=== PATIENT | male | born 1990 | race Caucasian/White ===

== ENCOUNTER → 2017-01-04 | Outpatient (CLI) | payer OTHER ==
[~2017-01-04] VITALS: Ht 180.3 cm; Wt 99.5 kg
[~2017-01-04] MED LIST: ACID CONTROL20 MG PO; ANTIHEMOPHILIC FACTOR IV; COAGULATION FACTOR IX; DIPHENHYDRAMINE25 M3 PO; HYDROCODON-ACE1 EAC5 PO; NOVOSEVEN RT IV; OXYCODONE HCL 55 MG PO; OXYCODONE HCL5 M1 PO; OXYIR 5 MG CAPSU5 M1 PO; PRILOSEC 20 MG20 MG PO; ROXICODONE5 M2 PO; ROXICODONE5 MG PO; WELLBUTRIN XL150 M1 PO; [UNRECOGNIZED DRUG - OTHER] IV
--- NOTE | ~2017-01-04 | HPC ---
[facility] [address] [place] [address] PAIN MANAGEMENT CONSULTATION Name: ROBERT MOSCOSO Room #: REG JAMESON Sands.#: [id number] Admission: 01/04/17 Attend Phys: Cherelle Portillo MD Discharge: Date of : 88 Report #: [id number] THIS REPORT FOR: //name// CC: Cherelle Gandhi MD PRIMARY CARE PHYSICIAN: Jose Gandhi M.D. FOLLOWUP COMPLAINT: Things are going reasonably well. FOLLOWUP HISTORY: The patient is a 26-year-old gentleman who has been followed in the pain clinic. 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 He finds that his opioid medications continued to be helpful. He is taking them as prescribed. He is not having any problems with the medications. He has returned today and would like to continue their use. He rates his pain as a 2-3 today. Still has pain, which is most problematic in his left elbow, has some pain in the left ankle and notes some changes when the weather changes abruptly or with overuse of these areas. PHYSICAL EXAMINATION: The patient is alert, has not fallen since we saw him last. Blood pressure is 110/83, pulse 74, respiratory rate 16, room air saturation 99%. Height 5 feet 11 inches, weight 180 pounds, BMI is 30, has pain and discomfort involving his elbow, particularly on the left side secondary to bleeds resulting from hemophilia. IMPRESSION: Chronic pain involving joints, which results in pain secondary to constant bleeding from hemophilia. RECOMMENDATIONS: We will continue with his current medical regimen. The patient will call us if he has any problems with his medications. We would like to thank you for letting us participate in his care. We hope he continues to improve. <ELECTRONICALLY SIGNED> By: Cherelle Portillo MD 01/09/17 0901 [id number] Cherelle Portillo MD /nt
[2017-01-04 10:25] VITALS: BP 110/83
== END | disposition home or self-care (01) ==
LOC: PAIN 06:45
DX: D66 Hereditary factor VIII deficiency (principal); M25.572 Pain in left ankle and joints of left foot; M25.50 Pain in unspecified joint

== ENCOUNTER → 2017-04-12 | Outpatient (CLI) | payer OTHER, BC ==
[~2017-04-12] VITALS: Ht 180.3 cm; Wt 98.0 kg
[~2017-04-12] MED LIST changes: -WELLBUTRIN XL150 M1 PO; +WELLBUTRIN XL150 MG PO
--- NOTE | ~2017-04-12 | HPC ---
[facility] [address] [place] [place] [address] PAIN MANAGEMENT CONSULTATION Name: ROBERT MOSCOSO Room #: REG JAMESON Sands.#: [id number] Admission: 04/12/17 Attend Phys: Cherelle Portillo MD Discharge: Date of : 89 Report #: [id number] THIS REPORT FOR: //name// CC: Cherelle Gandhi MD DATE OF SERVICE: 04/12/2017 FOLLOWUP COMPLAINT: "Things are going reasonably well and haven't had any problems." FOLLOWUP HISTORY: The patient is a 26-year-old gentleman who has been followed in the Pain Clinic secondary to hemophilia. As you recall, he gets frequent bleeds into his joints. He finds the opioid medications are helpful. He is able to stay active with use of his medications. He states that he is not having any problem with the medications. He keeps them in a controlled environment. He would like to have his medications renewed at this juncture. PHYSICAL EXAMINATION: GENERAL: The patient is alert. No evidence of over sedation. He appears to be taking his medications as prescribed. VITAL SIGNS: Blood pressure 131/92, pulse 94, respiratory rate 18, room air saturation 97%. Height 5 feet 11 inches, weight 216 pounds, BMI is 30. He has not fallen since we saw him last. 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 RECOMMENDATIONS: We will continue with his current medical regimen of hydrocodone 10/325 one p.o. as needed, oxycodone 5 mg 1 p.o. q. 8 hours p.r.n. pain. He will follow up in the future as needed. By: [id number] Cherelle Portillo MD /BREANN
[2017-04-12 09:15] VITALS: BP 131/92
== END | disposition home or self-care (01) ==
LOC: PAIN 07:07
DX: D66 Hereditary factor VIII deficiency (principal); G89.29 Other chronic pain; Z79.899 Other long term (current) drug therapy

== ENCOUNTER → 2017-07-12 | Outpatient (CLI) | payer OTHER, BC ==
[~2017-07-12] VITALS: Ht 180.3 cm; Wt 101.5 kg
--- NOTE | ~2017-07-12 | HPC ---
[facility] [place] [address] PAIN MANAGEMENT CONSULTATION Name: ROBERT MOSCOSO Room #: REG JAMESON Sands.#: [id number] Admission: 07/12/17 Attend Phys: Cherelle Portillo MD Discharge: Date of : 88 Report #: [id number] THIS REPORT FOR: //name// CC: Cherelle Gandhi MD DATE OF SERVICE: 07/12/2017 FOLLOWUP COMPLAINT: "Things are going reasonably well. I am teaching." FOLLOWUP HISTORY: The patient is a 26-year-old gentleman who has been followed in the pain clinic because of chronic pain associated with hemophilia. As you recall, he gets frequent bleeds in his joints. He continues to find that opioid medications are helpful. He has taken the medication as prescribed. States that he keeps it in a controlled environment. He has not had any problems with his medications. 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 Overall, he feels that the medications are helpful and he would like to continue their use. ALLERGIES: ROCEPHIN, PENICILLIN. MEDICATIONS: Oxycodone 5 mg tablets q. 8 hours p.r.n. pain, hydrocodone 10/325 one q. 46 hours p.r.n. pain, Wellbutrin-XL 150 mg b.i.d., diphenhydramine p.r.n., omeprazole 20 mg. The patient also takes vitamin or takes hemophilia injections on a regular basis. PHYSICAL EXAMINATION: VITAL SIGNS: Blood pressure 105/78, pulse 84, respiratory rate 16, room air saturation 95%. Height 5 feet 11 inches, weight 223 pounds, BMI is 32. The patient has not fallen since we saw him last. HEENT: Unremarkable. NECK: Without adenopathy. CHEST: Clear to auscultation. ABDOMEN: Nontender, does note some decreased range of motion in his elbows, secondary to chronic bleeds in the past. IMPRESSION: 1. 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 2. Depression. RECOMMENDATIONS: We discussed treatment options with the patient. We will continue with his current medical regimen of OxyContin and hydrocodone. He will call us if he has any problems with his medications. Hopefully, things continue to go well. 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 [address] PAIN MANAGEMENT CONSULTATION Name: ROBERT MOSCOSO Room #: REG JAMESON Nate#: [id number] Admission: 07/12/17 Attend Phys: Cherelle Portillo MD Discharge: Date of : 89 Report #: [id number] like to thank you for letting us participate in his care. We hope he continues to improve. <ELECTRONICALLY SIGNED> By: Cherelle Portillo MD 07/24/17 0837 [id number] Cherelle Portillo MD /BREANN
[2017-07-12 14:28] VITALS: BP 105/78
== END ==
LOC: PAIN 07:24
DX: M25.08 Hemarthrosis, other specified site (principal); D66 Hereditary factor VIII deficiency; F32.9 Major depressive disorder, single episode, unspecified

== ENCOUNTER → 2017-10-18 | Outpatient (CLI) | payer OTHER, BC ==
[~2017-10-18] VITALS: Ht 180.3 cm; Wt 106.5 kg
--- NOTE | ~2017-10-18 | HPC ---
[facility] [address] [place] [address] PAIN MANAGEMENT CONSULTATION Name: ROBERT MOSCOSO Room #: REG Bo LuevanoIsraelTim.#: [id number] Admission: 10/18/17 Attend Phys: Cherelle Portillo MD Discharge: Date of : 89 Report #: [id number] THIS REPORT FOR: //name// CC: Cherelle Gandhi MD DATE OF SERVICE: 10/18/2017 FOLLOWUP COMPLAINT: Things are going reasonably well, I am in [facility], which is about 4 hours away. FOLLOWUP HISTORY: The patient is a 26-year-old gentleman who has been followed in the pain clinic because of chronic pain associated with his hemophilia. As you recall because of his hemophilia, he has episodic bleeds. They involve his elbows most of the time. Finding his opioid medications continue to be helpful. Continues to use hemolytic factor approximately 3500 units every other day for hemostasis. Overall, things are going reasonably well. He describes pain and discomfort as 6-7/10. Notes that there is some burning, sharp, aching and dull discomfort in the elbow areas. The weather has been changing. He has noted some increased pain and discomfort with overuse of his arms. Notes that it improves somewhat with use of his medication as well as using heat and rest. States that he continues to use his medications in a fashion as required. Keeps his medications in a guarded place. 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 ALLERGIES: ROCEPHIN, PENICILLIN. MEDICATIONS: Oxycodone 5 mg tablets q. 8 hours p.r.n. pain, hydrocodone 10/325 q. 4-6h p.r.n. pain, Wellbutrin-XL 450 mg b.i.d., diphenhydramine, omeprazole 20 mg, the patient also takes vitamins. Takes hemophilia injections every other day 3500 units. PAIN CLINIC ASSESSMENT: 1. 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 2. Height 5 feet 11 inches, weight 234 pounds, BMI is 23. 3. VITAL SIGNS: Blood pressure 135/86, pulse 76, respiratory rate 16, room air saturation 97%. 4. Pain intensity is a 6-7. 5. Fall risk. The patient has not fallen in the last 3 months. 6. Blood thinner. The patient is not on a blood thinner. He does have hemophilia. 7. History of hypertension. The patient is not treated for hypertension. 8. Opioid therapy. The patient is on a contract and signed a contract with the pain clinic to get [place] [address] PAIN MANAGEMENT CONSULTATION Name: BLANKAROBERT DIMITRIS Room #: REG JAMESON Sullivan#: [id number] Admission: 10/18/17 Attend Phys: Cherelle Portillo MD Discharge: Date of : 89 Report #: [id number] 9. Risks assessment tool. 10. Functional assessment tool. 11. Recreational drug use. The patient denies use of recreational drugs. 12. Tobacco. The patient denies use of tobacco smoking. 13. Alcohol. The patient denies use of alcoholic beverages. PHYSICAL EXAMINATION: GENERAL: The patient is a well-developed, well-nourished white male, appears his stated age. Orientation: The patient is alert and oriented x 3. Affect, the patient's affect appears normal. Speech is fluent. HEENT: Normocephalic, atraumatic. Extraocular eye muscles intact. Hearing is within normal limits. Mucous membranes moist. NECK: Without JVD or adenopathy. HEART: Regular rate. ABDOMEN: Nontender. MUSCULOSKELETAL: Generally normal without evidence of kyphosis, scoliosis or lordosis. Upper extremity strength, the patient has some limitations and extension of his elbows. This is secondary to the numerous episodes of bleeding into these joints over a period of time. 3D Specialist strength 5/5, lower extremity strength 5/5. IMPRESSION: 1. Chronic pain secondary to hemarthrosis involving his elbows and other joints secondary to hemophilia. 2. Depression. RECOMMENDATIONS: We discussed treatment options with the patient. Finding his medications continue to be helpful. They are able to remain him gainfully employed. He feels that the medications are working well without any problems with over sedation or problems with mentation. He is aware of the opioid message in the media. States that he is taking his medication as prescribed. He is aware of possible addiction as well as tolerance, which could develop. He will call us if he has any problems with his medications. A script for 3 months of medications have been dispensed. We would like to thank you for letting us participate in his care. We hope he continues to improve. <ELECTRONICALLY SIGNED> By: Cherelle Portillo MD 10/23/17 [id number] [id number] Cherelle Portillo MD /BREANN
[2017-10-18 10:28] VITALS: BP 135/86
== END ==
LOC: PAIN 06:51
DX: G89.29 Other chronic pain (principal); M25.022 Hemarthrosis, left elbow; M25.021 Hemarthrosis, right elbow; F32.9 Major depressive disorder, single episode, unspecified; Z88.0 Allergy status to penicillin; Z88.8 Allergy status to other drugs, medicaments and biological substances

== ENCOUNTER → 2018-01-10 | Outpatient (CLI) | payer OTHER, BC ==
[~2018-01-10] VITALS: Ht 180.3 cm; Wt 103.7 kg
--- NOTE | ~2018-01-10 | HPC ---
[facility] [place] [address] PAIN MANAGEMENT CONSULTATION Name: ROBERT MOSCOSO Room #: REG Bo Nate#: [id number] Admission: 01/10/18 Attend Phys: Cherelle Portillo MD Discharge: Date of : 88 Report #: [id number] THIS REPORT FOR: //name// CC: Cherelle Gandhi DATE OF SERVICE: 01/10/2018 FOLLOWUP COMPLAINT: "Here for renewal of medications. Have not had any problems. I still get a bleed in my joints about once or twice a month." FOLLOWUP HISTORY: The patient is a 27-year-old gentleman who has been followed in the pain clinic because of chronic pain associated with hemophilia. He continues to have episodes of bleeding. It involves his joints. They are the elbows as well as his ankles. He continues to use hemolytic factor approximately 35,000 units every other day. Overall, he feels that things are going reasonably well. He rates his pain as a 5/10. He has noted some worsening of pain when the weather changes. He also notes problems when he overuses his joints. At this point, he is not having a bleed. He does continue to have some pain and discomfort in his left ankle with some decreased mobility as compared to the right. He continues to keep his medications in a guarded area. He is aware of the possible complications of opioid use, which could include dependence/addiction as well as tolerance. 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 ALLERGIES: ROCEPHIN, PENICILLIN. CURRENT MEDICATIONS: Oxycodone tablets 5 mg q. 8h p.r.n., hydrocodone 10/325 q. 4-6h p.r.n., Wellbutrin-XL 150 mg b.i.d., diphenhydramine, omeprazole 20 mg, multivitamin, hemophilia injections every other day 35,000 units. PAIN CLINIC ASSESSMENT: 1. History of osteoarthritis involving his lower extremities, right and left elbows. 2. Height 5 feet 11 inches, weight 228 pounds, BMI is 31.9. 3. Vital signs: Blood pressure 126/81, pulse 83, respiratory rate 16, room air saturations 100. 4. Pain intensity 5/10. 5. Fall risk: The patient has not fallen in the last 3 months. 6. Blood thinner: The patient is not on a blood thinning medication. He has hemophilia. 7. History of hypertension: The patient is not being treated for hypertension. 8. Opioid therapy greater than 6 weeks: The patient is on opioid therapy provided by the pain clinic. He gets this medication from [facility]. 9. Functional assessment tool. 10. Recreational drug use: The patient denies use of recreational drugs. [address] [address] PAIN MANAGEMENT CONSULTATION Name: BLANKAROBERT DIMITRIS [facility] [id number] Admission: 01/10/18 Attend Phys: Cherelle Portillo MD Discharge: Date of : 89 Report #: [id number] 11. Tobacco: The patient has never smoked cigarettes. 12. Alcohol: The patient denies use of alcoholic beverages. PHYSICAL EXAMINATION: GENERAL: The patient is a well-developed, well-nourished white male. He appears his stated age. He is alert and oriented x 3. His affect is appropriate. Speech is fluent. HEENT: Normocephalic, atraumatic. Extraocular eye muscles intact. Hearing is within normal limits. Mucous membranes are moist. Sclerae are nonicteric. NECK: Without JVD or adenopathy. HEART: Regular rate. S1, S2. ABDOMEN: Nontender. MUSCULOSKELETAL: Without evidence of kyphosis, scoliosis or lordosis. Upper extremity muscle strength judged to be 5/5. He has some limited movement in his left and right elbow secondary to numerous episodes of bleeding. 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 Lower extremity muscle strength 5/5. He has some decreased range of motion in his left ankle as compared to the right secondary to history of bleeding into the joints. IMPRESSION: 1. Chronic pain secondary to hemarthrosis involving his elbows joints and ankles. 2. Depression. RECOMMENDATIONS: We discussed treatment options with the patient. We will continue with his current medication use. He states that he is taking his medication as prescribed. He is aware of the possible complication of opioids. ____ regarding addiction as well as tolerance were discussed. He feels his medications are working reasonably well. They enable him to engage in activities of daily living, which he would not be able to without them. Remains gainfully employed. A script for 3 months of his medications have been rewritten. He will follow up in the near future. We would like to thank you for letting us participate in his care. We hope he continues to improve. By: [id number] Cherelle Portillo MD /BREANN
[2018-01-10 09:53] VITALS: BP 126/81
== END ==
LOC: PAIN 07:11
DX: M25.522 Pain in left elbow (principal); M25.572 Pain in left ankle and joints of left foot; G89.29 Other chronic pain; F32.9 Major depressive disorder, single episode, unspecified

== ENCOUNTER → 2018-04-11 | Outpatient (CLI) | payer OTHER, BC ==
[~2018-04-11] VITALS: Ht 180.3 cm; Wt 104.1 kg
--- NOTE | ~2018-04-11 | HPC ---
[facility] [address] [place] [address] PAIN MANAGEMENT CONSULTATION Name: ROBERT MOSCOSO Room #: REG JAMESON LuevanoIsraelTim.#: [id number] Admission: 04/11/18 Attend Phys: Cherelle Portillo MD Discharge: Date of : 88 Report #: [id number] THIS REPORT FOR: //name// CC: Cherelle Gandhi FOLLOWUP COMPLAINT: The patient is here for medications. 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 FOLLOWUP HISTORY: The patient is a 27-year-old gentleman. 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 He finds that his medications continue to be helpful. He has episodes, where he continues to bleed into the joints. They continue to be problematic. Overall, things are going reasonably well. He does have bleed in his elbow and in his ankles. He continues to receive hemolytic factor approximately 35,000 units every day. Overall, he feels that things are going reasonably well. 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 He has somewhat tired as a result of the long drive. Overall, things are going well. He would like to continue with his medications. He is keeping the medications in a guarded area. He is not having any complications. He is aware that opioid medications can be problematic. They can cause dependence. The patient is aware of this and has carefully guarded the amount of medication that he has been taking. He would like to have a renewal of his medications at this juncture. CURRENT MEDICATIONS: Oxycodone 5 mg tablets q.8 hours, hydrocodone 10/325 q.4-6 hours p.r.n., Wellbutrin-XL 150 mg b.i.d., diphenhydramine, omeprazole 20 mg, multivitamin, and hemophilia injections every day 35,000 units. ALLERGIES: THE PATIENT IS ALLERGIC TO ROCEPHIN AND PENICILLIN. PAIN CLINIC ASSESSMENT AND PQRS: 1. History of osteoarthritis involving his lower extremities, right and left elbow. The patient is not being treated for rheumatoid arthritis. 2. Pain intensity is 6/10. 3. Fall risk. The patient has not fallen in the last 3 months. 4. Blood thinner. The patient is not on a blood thinning medication. He does have hemophilia. 5. History of hypertension. The patient is not being treated for hypertension. 6. Opioid medication. The patient has a contract with the pain clinic and receives his medication from one source. 7. Risk assessment tool, low for opioid use. 8. Functional assessment tool 38/70. 9. Recreational drug use. The patient denies use of recreational drugs. 10. Tobacco: The patient has never smoked. 11. Alcohol: The patient denies use of alcoholic beverages. PHYSICAL EXAMINATION: [facility] [address] [place] [address] PAIN MANAGEMENT CONSULTATION Name: ROBERT MOSCOSO DIMITRIS Room #: REG CLI Pete#: [id number] Admission: 04/11/18 Attend Phys: Cherelle Portillo MD Discharge: Date of : 88 Report #: [id number] GENERAL: The patient is a well-developed, well-nourished white male. He appears his stated age. He is alert and oriented x 3. His affect is appropriate. Speech is fluent. Height is 5 feet 11 inches, weight is 229 pounds, and BMI is 32. VITAL SIGNS: Blood pressure is 121/88, pulse is 65, respiratory rate is 14, and room air saturation is 97%. HEENT: Normocephalic, atraumatic. Extraocular eye muscles intact. Hearing is within normal limits. Mucous membranes are moist. Sclerae nonicteric. NECK: Without JVD or adenopathy. HEART: Regular rate. S1, S2. ABDOMEN: Nontender. Bowel sounds present. MUSCULOSKELETAL: Without evidence of kyphosis, scoliosis, or lordosis. Upper extremity muscle strength is judged to be 5/5. The patient continues to have some limited movement in his left and right elbow secondary to numerous episodes of bleeding. Roller Stitcher strength is 5/5. Lower extremity muscle strength is 5/5. The patient has some decreased range of motion in his left ankle compared to the right secondary to history of bleeding in the joints. IMPRESSION: 1. 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 2. Depression. RECOMMENDATIONS: We have discussed treatment options with the patient. He feels that his medications continue to be helpful. Things are going well. He is not having any complications. He is able to think clearly. He does not feel like he is having any problems with significant tolerance development. Overall, he feels medications are going reasonably well. He would like to continue with his medication. He feels that things are going well and will return in 3 months. A script for his medications of Roxicodone 5 mg and Jerome 10/325 have been written. We would like to thank you for letting us participate in his care. We hope he continues to improve. <ELECTRONICALLY SIGNED> By: Cherelle Portillo MD 04/28/18 [phone] Cherelle Portillo MD /PMT
[2018-04-11 09:04] VITALS: BP 121/88
== END ==
LOC: PAIN 08:07
DX: G89.29 Other chronic pain (principal); F32.9 Major depressive disorder, single episode, unspecified; M25.022 Hemarthrosis, left elbow; M25.021 Hemarthrosis, right elbow; M25.071 Hemarthrosis, right ankle; M25.072 Hemarthrosis, left ankle; Z79.899 Other long term (current) drug therapy

== ENCOUNTER → 2018-07-11 | Outpatient (CLI) | payer OTHER, BC ==
[~2018-07-11] VITALS: Ht 180.3 cm; Wt 104.0 kg
--- NOTE | ~2018-07-11 | HPC ---
[facility] [place] [place] [address] PAIN MANAGEMENT CONSULTATION Name: ROBERT MOSCOSO Room #: REG JAMESON Shavon.#: [id number] Admission: 07/11/18 Attend Phys: Cherelle Portillo MD Discharge: Date of : 88 Report #: [id number] THIS REPORT FOR: //name// CC: Cherelle Gandhi DATE OF SERVICE: 07/11/2018 CHIEF COMPLAINT: Here for medication renewal, things are going well. FOLLOWUP HISTORY: The patient is a 27-year-old gentleman who has been followed in the Pain Clinic. 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 He continues to have bleeding into his joints, particularly in the elbow areas. They continued to be painful. Finds that his medications are beneficial. He, as you are aware, cannot take any nonsteroidal anti-inflammatory medications. Finds that the opioid medications are beneficial. Continues to have approximately 35,000 units daily of hemolytic factor. Continues to teach. Keeps his medications in a guarded area. Overall, he feels that things are going reasonably well and would like to have his medications renewed. ALLERGIES: ROCEPHIN AND PENICILLIN. CURRENT MEDICATIONS: Oxycodone 5 mg q.8 hours, hydrocodone 10/325 q. 4-6 hours p.r.n., Wellbutrin-XL 150 mg b.i.d., diphenhydramine, omeprazole 20 mg, multivitamins, hemophilia injections every day 35,000 units. PAIN CLINIC ASSESSMENT/PQRS: 1. History of osteoarthritis involving the lower extremities right and left elbow pain. The patient is not being treated for rheumatoid arthritis. 2. Pain intensity, 12/22. 3. Height 5 feet 11 inches, weight 229 pounds, BMI is 32. 4. Vital signs: Blood pressure 115/75, pulse 77, respiratory rate 16, room air saturation 98%. 5. Fall risk. The patient has not fallen in the last 3 months. 6. Blood thinner. The patient is not on a blood thinning medication. He has hemophilia. 7. History of hypertension. The patient is not being treated for hypertension. 8. Opioid therapy greater than 6 weeks. The [facility]. 9. Risk assessment tool, low for opioid use. 10. Functional assessment tool, . 11. Recreational drug use. The patient denies use of recreational drugs. 12. Tobacco: The patient has never smoked. 13. Alcohol: The patient denies use of alcoholic beverages. PHYSICAL EXAMINATION: [facility] [address] [place] [address] PAIN MANAGEMENT CONSULTATION Name: ROBERT MOSCOSO Room #: REG [facility]#: [id number] Admission: 07/11/18 Attend Phys: Cherelle Portillo MD Discharge: Date of : 88 Report #: [id number] GENERAL: The patient is a well-developed, well-nourished white male. Appears his stated age. He is alert and oriented x 3. His affect is appropriate. Speech is fluent. HEENT: Normocephalic, atraumatic. Extraocular eye muscles intact. Sclerae nonicteric. Mucous membranes moist. NECK: Without adenopathy or JVD. HEART: Regular rate. S1, S2. ABDOMEN: Nontender. Bowel sounds present. MUSCULOSKELETAL: Without scoliosis, kyphosis or lordosis. The upper extremity has pain, particularly in his elbows with inability to totally extend his right elbow secondary to numerous episodes of bleed. Equipment Superintendent strength 5/5. Lower extremity muscle strength 5/5. The patient has pain and decreased motion in his left ankle compared to the right secondary to episodes of bleeding in the past. IMPRESSION: 1. 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 2. Depression. RECOMMENDATIONS: We have discussed the risks and benefits of opioid medication with the patient. He feels that they are working reasonably well. They allowed him to be gainfully employed. Enable him to engage in activities of daily living. He would not be able to without their use. Overall, he feels that things are going reasonably well. Aware that medication, such as opioids could be less effective as time goes on, secondary to development of tolerance and one can develop dependence. A script for his medications of oxycodone 5 mg 1 p.o. q. 8 hours 72 tablets and hydrocodone 10/325 one p.o. q.i.d. have been written. We would like to thank you for letting us participate in his care. We hope he continues to improve. By: [id number] Cherelle Portillo MD /reza
[2018-07-11 13:23] VITALS: BP 115/75
--- NOTE | 2018-07-11 13:34 | NUR ---
Pain Clinic Assessment: 1. History of Osteoarthritis: Left Lower Extremity Right Lower Extremity History of Rheumatoid Arthritis: Not Applicable 2. Height: 5 ft. 11 in. 180.3 cm. Weight: 229.2 lb. oz. 103.965 kg. Patient's BMI: 32.0 3. Vital Signs: BP: 115/75 Pulse: 77 Resp: 16 Temp: 02 Sat: 98 ECG Mon: 4. Pain Intensity: 6 5. Fall Risk: Dizziness: N Needs help standing or walking: N Fallen in the last 3 months: N Fall risk comments: 6. Patient on Blood Thinner: None 7. History of Hypertension: N 8. Opioid Therapy greater than 6 weeks: Y Opiate Contract Signed: 05/10/16 9. Risk Assessment Tool Provided: Opioid Risk Tool 10. Functional Assessment Tool: 38 11. Recreational Drug Use: Never Drug Type: Tobacco Use: Never Smoker Tobacco Type: Amount or Packs/day: How Many Years: Alcohol Use: No Frequency: Quant:
== END ==
LOC: PAIN 07:48
DX: G89.29 Other chronic pain (principal); F32.9 Major depressive disorder, single episode, unspecified; M25.022 Hemarthrosis, left elbow; M25.021 Hemarthrosis, right elbow; M25.072 Hemarthrosis, left ankle; M25.071 Hemarthrosis, right ankle; Z79.899 Other long term (current) drug therapy

== ENCOUNTER → 2018-10-10 | Outpatient (CLI) | payer BC ==
[~2018-10-10] VITALS: Ht 180.3 cm; Wt 103.0 kg
[~2018-10-10] MED LIST changes: +HEMLIBRA30 MG/1 ML SUBQ
[2018-10-10 09:06] VITALS: BP 128/85
--- NOTE | 2018-10-10 09:10 | NUR ---
Pain Clinic Assessment: 1. History of Osteoarthritis: B/L ELBOWS B/L ANKLES History of Rheumatoid Arthritis: Not Applicable 2. Height: 5 ft. 11 in. 180.3 cm. Weight: 227.0 lb. oz. 102.967 kg. Patient's BMI: 31.7 3. Vital Signs: BP: 128/85 Pulse: 66 Resp: 16 Temp: 02 Sat: 95 ECG Mon: 4. Pain Intensity: 4 5. Fall Risk: Dizziness: N Needs help standing or walking: N Fallen in the last 3 months: N Fall risk comments: 6. Patient on Blood Thinner: None 7. History of Hypertension: N 8. Opioid Therapy greater than 6 weeks: Y Opiate Contract Signed: 05/10/16 9. Risk Assessment Tool Provided: Opioid Risk Tool 10. Functional Assessment Tool: 38 11. Recreational Drug Use: Never Drug Type: Tobacco Use: Never Smoker Tobacco Type: Amount or Packs/day: How Many Years: Alcohol Use: No Frequency: Quant:
--- NOTE | 2018-10-14 12:42 | HPC ---
[facility] [place] [address] [place] [address] PAIN MANAGEMENT CONSULTATION Name: ROBERT MOSCOSO Room #: REG JAMESON Shavon.#: [id number] Admission: 10/10/18 ������������������ Attend Phys: Cherelle Portillo MD Discharge: ������������������ Date of : 88 Report #: [id number] THIS REPORT FOR: //name// CC: Cherelle Gandhi DATE OF SERVICE: 10/10/2018 CHIEF COMPLAINT: "Here for medication renewal, things are going okay." HISTORY: The patient is a 27-year-old gentleman who has been followed in the Pain Clinic. 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 He finds that his pain originates from chronic bleeding into his joints. It involves his elbows as well as his left ankle. He feels that his medications are helpful. He is a teacher. He states that he is considering moving to [place]. He would like to move to the [facility]. He has friends as well as family in this area. He feels that the warmer climate may be more efficacious to his chronic pain as well. He continues to have hemolytic some problems with bleeding into his knees. He takes 35,000 units daily of hemolytic factor. He feels that the medications continued to be doing the best as they can. ALLERGIES: ROCEPHIN AND PENICILLIN. CURRENT MEDICATIONS: Oxycodone 5 mg q. Hydrocodone 10 mg q.4-6 hours p.r.n., Wellbutrin-XL 150 mg, diphenhydramine, omeprazole 20 mg, multivitamins, hemophilia injections every day 35,000 units. PAIN CLINIC ASSESSMENT/PQRS: 1. The patient has a history of osteoarthritic changes involving his elbows, right and left, as well as the complaint of left ankle problems. The patient is not being treated for rheumatoid arthritis. 2. Height 5 feet 11 inches, weight 222 pounds, BMI is 31.7. 3. Vital signs: Blood pressure 128/85, pulse 66, respiratory rate 16, room air saturation 95%. 4. Pain intensity 10/22. 5. Fall risk. The patient has not fallen in the last 3 months. 6. Blood thinner. The patient is not on a blood thinning medication. 7. Hypertension. The patient has not been treated for hypertension. 8. Opioids greater than 6 weeks. The [facility]. 9. Risk assessment tool, low for opioid use. 10. Functional assessment tool, . 11. Recreational drug use. The patient denies use of recreational drugs. 12. Tobacco: The patient has never smoked. 13. Alcohol: The patient denies frequent use of alcoholic beverages. [address] [address] PAIN MANAGEMENT CONSULTATION Name: ROBERT MOSCOSO DIMITRIS Room #: REG CL Shavon.#: [id number] Admission: 10/10/18 ������������������ Attend Phys: Cherelle Portillo MD Discharge: ������������������ Date of : 88 Report #: [id number] PHYSICAL EXAMINATION: GENERAL: The patient is a well-developed, well-nourished white male. Appears his stated age. He is alert and oriented x 3. His affect is appropriate. Speech is fluent. HEENT: Normocephalic, atraumatic. Extraocular eye muscles are intact. Sclerae nonicteric. Mucous membranes are moist. NECK: Without adenopathy or JVD. ABDOMEN: Nontender. Bowel sounds present. MUSCULOSKELETAL: Without significant scoliosis, kyphosis or lordosis. He does have pain and discomfort in his left as well as the right elbows. His arms were not fully extended secondary to the lobsterman bleeding episodes he has had in the past. Muscle strength global head advertiser solutions is 5/5. Lower extremity muscle strength 5/5 in the major muscle groups. He has some decreased range of motion in his left ankle secondary to episodes of bleeding in the past. IMPRESSION: 1. Chronic pain secondary to hemarthrosis involving the elbows and ankle, particularly left side. 2. Depression. RECOMMENDATION: We discussed treatment options with the patient. We will continue with his current medications. Risks and benefits of chronic opioid medication were discussed. Possibility of development of tolerance as well as less effectiveness because of chronic use of these medications was again reviewed. The patient is also aware that opioid dependence can occur as a result of chronic use of opioid medications. He feels that his medications provide him ability to engage in activities and would not be able to without them. Overall, things are going reasonably well and he would like to continue his medications. A script for his medications of oxycodone 5 mg 1 p.o. q.8 hours p.r.n., total of 75 and hydrocodone 10 mg 1 p.o. q.4-6 hours, total of 160 have been released. We would like to thank you for letting us participate in his care. We hope he continues to improve. ��������������������������������������������� <ELECTRONICALLY SIGNED> ���������������������������������������� By: Cherelle Portillo MD ��������������������������������������������� 10/14/18 1242 [id number] [id number] Cherelle Portillo MD /reza
== END | disposition home or self-care (01) ==
LOC: PAIN 06:45
DX: Z76.0 Encounter for issue of repeat prescription (principal); G89.29 Other chronic pain; D66 Hereditary factor VIII deficiency; Z88.0 Allergy status to penicillin; Z88.8 Allergy status to other drugs, medicaments and biological substances; Z79.891 Long term (current) use of opiate analgesic

== ENCOUNTER → 2019-01-28 | Outpatient (CLI) | payer BC, OTHER ==
[~2019-01-28] VITALS: Ht 180.3 cm; Wt 105.0 kg
[2019-01-28 13:46] VITALS: BP 118/83
--- NOTE | 2019-01-28 13:53 | NUR ---
Pain Clinic Assessment: 1. History of Osteoarthritis: B/L ELBOWS B/L ANKLES History of Rheumatoid Arthritis: Not Applicable 2. Height: 5 ft. 11 in. 180.3 cm. Weight: 231.4 lb. oz. 104.963 kg. Patient's BMI: 32.3 3. Vital Signs: BP: 118/83 Pulse: 74 Resp: 16 Temp: 02 Sat: 97 ECG Mon: 4. Pain Intensity: 3 5. Fall Risk: Dizziness: N Needs help standing or walking: N Fallen in the last 3 months: N Fall risk comments: 6. Patient on Blood Thinner: None 7. History of Hypertension: N 8. Opioid Therapy greater than 6 weeks: Y Opiate Contract Signed: 05/10/16 9. Risk Assessment Tool Provided: Opioid Risk Tool 10. Functional Assessment Tool: 38 11. Recreational Drug Use: Never Drug Type: Tobacco Use: Never Smoker Tobacco Type: Amount or Packs/day: How Many Years: Alcohol Use: No Frequency: Quant:
--- NOTE | 2019-01-29 08:01 | HPC ---
[facility] [email or web address] [address] PAIN MANAGEMENT CONSULTATION Name: ROBERT MOSCOSO Room #: REG JAMESON Sullivan#: [id number] Admission: 01/28/19 ������������������ Attend Phys: Lennie Sanders Discharge: ������������������ Date of : 88 Report #: [id number] THIS REPORT FOR: //name// CC: Lennie Sanders Jose Felizs DATE OF SERVICE: 01/28/2019 CHIEF COMPLAINT: Chronic pain in his joints as a result of hemophilia. HISTORY OF PRESENT ILLNESS: This is a pleasant 28-year-old gentleman who returns to the pain clinic today for refill of his medications that he uses to help treat his joint pain that is caused by his hemophilia. He tells me that he has recently started some new medications, only needing to take his injections once a week that feels that has been very beneficial and has decreased his pain slightly for his hemophilia. He also tells me that he may be possibly moving to [place]. He has had some job interviews down there. 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 Otherwise, he would like a refill of his medications today, stating his pain is a 3/10, worse with weather changes or overuse of his joints. ALLERGIES: PENICILLIN AND ROCEPHIN. CURRENT LIST OF MEDICATIONS: Oxycodone 5 mg b.i.d., hydrocodone 10/325 five to six times a day p.r.n., Hemlibra 30 mg weekly, antihemophilic factor as needed, bupropion twice a day, Prilosec 20 mg daily. PQRS: 1. He has a history of osteoarthritis in his elbows and ankles. He denies any rheumatoid arthritis. 2. Height is 5 feet 11 inches, weight is 231, BMI is 32. 3. Vital signs: Blood pressure 118/83, pulse 74, respirations 16, oxygen sat is 97. 4. Pain score is 3/10. 5. Denies dizziness. He does not need help with walking or standing. He has not fallen in the last 3 months. 6. The patient is not on any blood thinners. He does not take medicine for hypertension. 7. Opioid therapy is greater than 6 weeks; therefore, an opioid signed contract is on the chart. Risk assessment tool is low. Functional assessment is 38/70. 8. Recreational drug use, he denies. He is not a smoker and does not drink alcohol. We did check the prescription monitoring system. The patient is filling appropriately for his medications and he is due for those to be filled today. [address] [address] PAIN MANAGEMENT CONSULTATION Name: BLANKAROBERT DIMITRIS Room #: REG JAMESON Sullivan#: [id number] Admission: 01/28/19 ������������������ Attend Phys: Lennie Sanders Discharge: ������������������ Date of : 88 Report #: [id number] He has gone slightly longer than a month since his last fill. There is a recent drug screen on the chart as well from earlier this year. PHYSICAL EXAMINATION: GENERAL: This is a well-developed, well-nourished, well-hydrated 28-year-old male who appears his stated age, placing his current pain score at 3/10 today. He is alert and orientated and his speech is fluent. HEENT: Normocephalic, atraumatic. Extraocular eye muscles are intact. Mucous membranes are moist. NECK: Without adenopathy or JVD. MUSCULOSKELETAL: Without significant scoliosis, kyphosis or lordosis. Complains of pain and discomfort in his bilateral elbows and bilateral ankles. He has decreased range of motion in his ankles secondary to episodes of bleeding in the past. Lower extremity strength judged to be 5/5 in all major muscle groups in his upper and lower extremities. IMPRESSION: 1. Chronic pain secondary to hemarthrosis involving his elbows and ankles. 2. Depression. 3. Complex medical management in terms of written opioid agreement. We reviewed the fact that opiate medications are being used to provide analgesia adequate to support activities of daily living, not attempting to achieve a specific pain score on the 0-10 Visual Analog Scale. The current opiate medications are providing sufficient analgesia to allow the patient to participate in activities of daily living. The patient is not exhibiting any aberrant behavior suggestive of drug diversion. The patient is not having any adverse reactions to medications. The patient is not suffering from daytime somnolence or mental acuity changes. The patient is managing opiate-induced constipation with appropriate vqgd-rga-bygkely agents and dietary considerations. The patient was counseled on concern for caution with operating a motor vehicle while using opiate medications. A physical exam was performed and the patient's functional status was evaluated. All patients with back pain were advised against the bed rest greater than 4 days and were advised to return to normal activities. Pain score assessment was noted and the treatment plan was reviewed with the patient. All current medications, both prescribed and OTC were reviewed and reconciled on the electronic medical record. Tobacco screening was accomplished and smoking cessation was advised when indicated. BMI was noted and diet/exercise modification was recommended for all patients following outside normal parameters. I reviewed with the patient today their responsibilities to safeguard prescription medications, reviewed their responsibility to utilize medications only as prescribed by the physician. They are to seek and receive pain [address] [address] PAIN MANAGEMENT CONSULTATION Name: ROBERT MOSCOSO Room #: REG [facility].#: [id number] Admission: 01/28/19 ������������������ Attend Phys: Lennie Sanders Discharge: ������������������ Date of : 88 Report #: [id number] medications only from 1 physician group ( [facility]). They are to use 1 pharmacy and keep the clinic informed if they change pharmacies. Their responsibilities include making followup visits in a timely fashion and to avoid abrupt discontinuation of medication usage. Their responsibilities further include bringing their medications (bottles from the pharmacy with residual pills) to the visit for possible confirmation of pill counts and the patient understands it is their responsibility to submit to random drug screens to ensure both that the medications prescribed are present, and that no other controlled substances are present. All prescriptions provided today were generated electronically. PLAN: 1. We discussed treatment options with the patient today. The patient tells me he has been able to decrease his pain medication slightly since he has had a change in his hemophilia medications. I encouraged him to try to continue at this lower dose if he is able and we discussed the CDC guidelines. Currently, he is at 69 morphine milligram equivalents, but if he is able to take less, that would lower the dose closer to their guidelines of 50. The patient is agreeable with trying to do this. Scripts given today for hydrocodone 10/325 #160 and oxycodone 5 mg #75 to be released today for an 8-week. 2. The patient did go longer than 3 months with his current medications and if he continues to do, then we will lower the amount of medications. This may be beneficial also since he is trying to move to [place] and finding a new pain clinic. I did give him the names of Dr. Andrade, Dr. Smallwood and Dr. Lanier who are pain doctors that practice in the [facility] area. 3. The patient is seen with Dr. Milad Portillo who collaborated care today. The patient will follow up in 3 months. ��������������������������������������������� <ELECTRONICALLY SIGNED> ���������������������������������������� By: Lennie Sanders ��������������������������������������������� 01/29/19 0801 1448 [id number] Lennie Sanders /nt
== END ==
LOC: PAIN 13:11
DX: M25.022 Hemarthrosis, left elbow (principal); M25.021 Hemarthrosis, right elbow; M25.071 Hemarthrosis, right ankle; M25.072 Hemarthrosis, left ankle; F32.9 Major depressive disorder, single episode, unspecified; Z79.891 Long term (current) use of opiate analgesic

== ENCOUNTER → 2019-07-01 | Outpatient (CLI) | payer BC, OTHER ==
[~2019-07-01] VITALS: Ht 180.3 cm; Wt 107.0 kg
[~2019-07-01] MED LIST changes: +HEMLIBRA SUBQ
[2019-07-01 12:55] VITALS: BP 130/84
--- NOTE | 2019-07-01 12:59 | NUR ---
Pain Clinic Assessment: 1. History of Osteoarthritis: B/L ELBOWS B/L ANKLES History of Rheumatoid Arthritis: Not Applicable 2. Height: 5 ft. 11 in. 180.3 cm. Weight: 235.8 lb. oz. 106.958 kg. Patient's BMI: 32.9 3. Vital Signs: BP: 130/84 Pulse: 101 Resp: 14 Temp: 02 Sat: 97 ECG Mon: 4. Pain Intensity: 4 W/MED 6 THIS AM 5. Fall Risk: Dizziness: N Needs help standing or walking: N Fallen in the last 3 months: N Fall risk comments: 6. Patient on Blood Thinner: None 7. History of Hypertension: N 8. Opioid Therapy greater than 6 weeks: Y Opiate Contract Signed: 05/10/16 9. Risk Assessment Tool Provided: Opioid Risk Tool 10. Functional Assessment Tool: 38 11. Recreational Drug Use: Never Drug Type: Tobacco Use: Never Smoker Tobacco Type: Amount or Packs/day: How Many Years: Alcohol Use: No Frequency: Quant:
--- NOTE | 2019-07-02 08:06 | HPC ---
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 HISTORY OF PRESENT ILLNESS: This is a [id number]-skk gentleman who returns to the pain clinic today for refill of his medications. He uses his hydrocodone and oxycodone to treat his joint pain as a result of his hemophilia. The worst pain is in his bilateral elbows as well as his left ankle. It is a dull aching pain, rating a 4/10 with his medications. He feels that the weather aggravates it as well as overuse or upon awakening in the morning. The medications are very beneficial as well as rest. He has been able to go longer than his 3 months of medication. His last visit was in January, some days he feels that he is able to take less medications, therefore, it has lasted longer. Today, he would like refills. He does live in [place], [place] now. We encouraged him to try and find a doctor closer to home to fill his medications. ALLERGIES: PENICILLIN AND ROCEPHIN. CURRENT LIST OF MEDICATIONS: Hemlibra 150 mg weekly, oxycodone 5 mg p.r.n., hydrocodone 10/325 p.r.n., Koate-DVI weekly, Wellbutrin 150 mg b.i.d., omeprazole. PQRS: 1. 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 Denies any rheumatoid arthritis. 2. Height is 5 feet 11 inches, weight is 235, BMI is 32. 3. Vital signs 130/84, pulse is 101, respirations 14, and oxygen sat is 97. 4. Pain score is 4/10. 5. Denies dizziness, does not need help walking or standing, has not fallen in the last 3 months. 6. The patient is not on any blood thinners or medicines for hypertension. 7. Opioid therapy is greater than 6 weeks; therefore, an opioid signed contract is on the chart. Risk assessment tool is low. Functional assessment is 38/70. 8. Recreational drug use, he denies. He is not a smoker and does not drink alcohol. According to the prescription monitoring system, he only had filled oxycodone. We did call his [place] pharmacy and spoke with them. According to their [facility] [address] [place] [address] PAIN MANAGEMENT CONSULTATION Name: ROBERT MOSCOSO DIMITRIS Room #: REG CLI Nate#: [id number] Admission: 07/01/19 Attend Phys: Lennie Sanders Discharge: Date of : 88 Report #: [id number] records, they had filled his hydrocodone exactly the same time of his oxycodone. His last fill was in 05/01/2019 for both of his medications by Dr. Portillo. There are no aberrant fills from any other physicians and there is a recent drug screen on the chart that is appropriate as well. PHYSICAL EXAMINATION: GENERAL: This is a well-developed, well-nourished, slightly obese 28-year-old gentleman, rating his current pain score at 4/10 today. HEENT: Normocephalic, atraumatic. Extraocular eye muscles are intact. Mucous membranes are moist. NECK: Without adenopathy or JVD. MUSCULOSKELETAL: He has discomfort and tenderness in his bilateral elbows and left ankle. He does have decreased range of motion in his ankle. Lower extremity strength judged to be 5/5 in all major muscle groups with good sensation. He is without significant scoliosis, kyphosis or lordosis. IMPRESSION: 1. 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 2. Depression. 3. Complex medical management under terms of written opioid agreement. We reviewed the fact that opiate medications are being used to provide analgesia adequate to support activities of daily living, not attempting to achieve a specific pain score on the 0-10 Visual Analog Scale. The current opiate medications are providing sufficient analgesia to allow the patient to participate in activities of daily living. The patient is not exhibiting any aberrant behavior suggestive of drug diversion. The patient is not having any adverse reactions to medications. The patient is not suffering from daytime somnolence or mental acuity changes. The patient is managing opiate-induced constipation with appropriate xxbq-euj-yaghgbz agents and dietary considerations. The patient was counseled on concern for caution with operating a motor vehicle while using opiate medications. A physical exam was performed and the patient's functional status was evaluated. All patients with back pain were advised against the bed rest greater than 4 days and were advised to return to normal activities. Pain score assessment was noted and the treatment plan was reviewed with the patient. All current medications, both prescribed and OTC were reviewed and reconciled on the electronic medical record. Tobacco screening was accomplished and smoking cessation was advised when indicated. BMI was noted and diet/exercise modification was recommended for all patients following outside normal parameters. I reviewed with the patient today their responsibilities to safeguard prescription medications, reviewed their responsibility to utilize medications [facility] [address] [place] [address] PAIN MANAGEMENT CONSULTATION Name: ROBERT MOSCOSO Room #: REG LUISANABo M.Tim.#: [id number] Admission: 07/01/19 Attend Phys: Lennie Sanders Discharge: Date of : 88 Report #: [id number] only as prescribed by the physician. They are to seek and receive pain medications only from 1 physician group ( [facility]). They are to use 1 pharmacy and keep the clinic informed if they change pharmacies. Their responsibilities include making followup visits in a timely fashion and to avoid abrupt discontinuation of medication usage. Their responsibilities further include bringing their medications (bottles from the pharmacy with residual pills) to the visit for possible confirmation of pill counts and the patient understands it is their responsibility to submit to random drug screens to ensure both that the medications prescribed are present, and that no other controlled substances are present. All prescriptions provided today were generated electronically. PLAN: 1. We discussed treatment options with the patient today. The patient finds his medications beneficial. He has been able to make three medications last longer. Our last visit with him was in January, 3 months of medications have lasted him 5 months. The patient feels that these medications allow him to keep as active as possible. 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 2. Scripts will be given to him today for his oxycodone 5 mg, #75 for today 4 an 8 weeks as well as hydrocodone 10/325 #160 for today 4 an 8-week by Dr. Errol Portillo. This does place the patient around 75 morphine mEq according to the CDC guidelines. 3. The patient will call for an appointment as needed. The patient is seen today by Dr. Portillo as well who collaborated care. <ELECTRONICALLY SIGNED> By: Lennie Sanders 07/02/19 0806 1525 Lennie Sanders /nt
== END ==
LOC: PAIN 06:56
DX: G89.29 Other chronic pain (principal); F32.9 Major depressive disorder, single episode, unspecified; Z79.891 Long term (current) use of opiate analgesic

== ENCOUNTER → 2019-10-02 | Outpatient (CLI) | payer BC, OTHER ==
[~2019-10-02] VITALS: Ht 180.3 cm; Wt 107.3 kg
[~2019-10-02] MED LIST changes: +MOVANTIK25 MG PO; +SYMPROIC0.2 MG PO
[2019-10-02 10:27] VITALS: BP 131/91
--- NOTE | 2019-10-02 10:34 | NUR ---
Pain Clinic Assessment: 1. History of Osteoarthritis: B/L ELBOWS B/L ANKLES History of Rheumatoid Arthritis: Not Applicable 2. Height: 5 ft. 11 in. 180.3 cm. Weight: 236.6 lb. oz. 107.321 kg. Patient's BMI: 33.0 3. Vital Signs: BP: 131/91 Pulse: 85 Resp: 16 Temp: 02 Sat: 97 ECG Mon: 4. Pain Intensity: 5 5. Fall Risk: Dizziness: N Needs help standing or walking: N Fallen in the last 3 months: N Fall risk comments: 6. Patient on Blood Thinner: None 7. History of Hypertension: N 8. Opioid Therapy greater than 6 weeks: Y Opiate Contract Signed: 05/10/16 9. Risk Assessment Tool Provided: Opioid Risk Tool 10. Functional Assessment Tool: 38 11. Recreational Drug Use: Never Drug Type: Tobacco Use: Never Smoker Tobacco Type: Amount or Packs/day: How Many Years: Alcohol Use: No Frequency: Quant:
--- NOTE | 2019-10-09 08:21 | HPC ---
[facility] [place] [address] PAIN MANAGEMENT CONSULTATION Name: ROBERT MOSCOSO Room #: REG JAMESON Sands.#: [id number] Admission: 10/02/19 Attend Phys: Cherelle Portillo MD Discharge: Date of : 88 Report #: [id number] THIS REPORT FOR: cc: Jose Gandhi MD,Jose Portillo,Cherelle Stinson MD ~ CC: Cherelle Gandhi DATE OF SERVICE: 10/07/2019 CHIEF COMPLAINT: Here for medications. HISTORY: The patient is a 28-year-old gentleman who has been followed in the pain clinic because of chronic pain. As you may recall, he suffers from hemophilia. He continues to have bleeding into his joints. He finds that the pain has helped with medications. The patient has for quite a number of years have been on opioid medications to help curtail his pain. He has returned today for renewal of medication. He is having some problems with constipation. He has returned today for renewal of the medications. ALLERGIES: PENICILLIN AND ROCEPHIN. CURRENT MEDICATIONS: Hemlibra 150 mg weekly, oxycodone 5 mg, hydrocodone 10/325, Koate-DVI weekly, Wellbutrin 150 mg b.i.d., omeprazole. PAIN CLINIC ASSESSMENT AND PQRS: 1. The patient has a history of osteoarthritis involving his elbows, ankles. The patient is not being treated for rheumatoid arthritis. 2. Height 5 feet 0 inch, weight 236 pounds, BMI is 33. 3. Vital signs: Blood pressure 131/91, pulse 85, respiratory rate 16, room air saturation 97%. 4. Pain intensity 10. 5. Fall risk. The patient has not fallen in the last 3 months. 6. Blood thinner. The patient is not on a blood thinning medication. 7. Hypertension. The patient is not being treated for hypertension. 8. Opioids greater than 6 weeks. The patient received medication from one source, pain clinic. 9. Risk assessment tool has been reviewed. 10. Functional assessment tool . 11. Recreational drugs, denies. 12. Tobacco: The patient has never smoked. 13. Alcohol. The patient denies frequent use of alcoholic beverages. PHYSICAL EXAMINATION: GENERAL: The patient is a well-developed, well-nourished white male. Appears [address] [address] PAIN MANAGEMENT CONSULTATION Name: ROBERT MOSCOSO Room #: REG [facility].#: [id number] Admission: 10/02/19 Attend Phys: Cherelle Portillo MD Discharge: Date of : 88 Report #: [id number] his stated age. He is alert and oriented x 3. His affect is appropriate. Speech is fluent. HEENT: Normocephalic, atraumatic. Extraocular eye muscles intact. Sclerae nonicteric. Mucous membranes moist. NECK: Without adenopathy. HEART: Regular. LUNGS: Generally clear. ABDOMEN: Nontender. MUSCULOSKELETAL: The patient complains of pain and discomfort in the left ankle. Notes some pain in his elbows bilaterally. The patient without significant scoliosis, kyphosis or lordosis. IMPRESSION: 1. 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 2. Depression. 3. Complex medical management used to help control the patient's pain. RECOMMENDATIONS: We discussed treatment options with the patient. At this juncture, we will continue with his medications. He feels that the medications are helpful. He has had no complications from their use. He has pain, which he rates at about a 5/10 in intensity. Does note some waxing and waning of the pain due to the weather. He does have suffered from opioid-induced constipation. We would like to have the patient try Movantik to help with this constipation. The patient has also been given a script for oxycodone 5 mg 1 p.o. 8 hours p.r.n., total of 75 tablets per month. He will also take hydrocodone 10/325 one p.o. q. 4 hours p.r.n., total of 160 tablets for a month. He has been given a script for the next 3 months. The patient will be provided a script for Movantik 25 mg daily to help with the opioid-induced constipation. We would like to thank you for letting us participate in his care. We hope he continues to improve. <ELECTRONICALLY SIGNED> By: Cherelle Portillo MD 10/09/19 0821 1641 [id number] Cherelle Portillo MD /BREANN
== END ==
LOC: PAIN 08:29
DX: G89.29 Other chronic pain (principal); F32.9 Major depressive disorder, single episode, unspecified; Z79.891 Long term (current) use of opiate analgesic

== ENCOUNTER → 2020-01-06 | Outpatient (CLI) | payer BC, OTHER ==
[~2020-01-06] VITALS: Ht 180.3 cm; Wt 107.7 kg
[2020-01-06 10:24] VITALS: BP 125/81
--- NOTE | 2020-01-06 10:34 | NUR ---
Pain Clinic Assessment: 1. History of Osteoarthritis: B/L ELBOWS B/L ANKLES History of Rheumatoid Arthritis: Not Applicable 2. Height: 5 ft. 11 in. 180.3 cm. Weight: 237.4 lb. oz. 107.684 kg. Patient's BMI: 33.1 3. Vital Signs: BP: 125/81 Pulse: 79 Resp: 16 Temp: 02 Sat: 98 ECG Mon: 4. Pain Intensity: 5 5. Fall Risk: Dizziness: N Needs help standing or walking: N Fallen in the last 3 months: N Fall risk comments: 6. Patient on Blood Thinner: None 7. History of Hypertension: N 8. Opioid Therapy greater than 6 weeks: Y Opiate Contract Signed: 05/10/16 9. Risk Assessment Tool Provided: LOW RISK 07/17 10. Functional Assessment Tool: 11. Recreational Drug Use: Never Drug Type: Tobacco Use: Never Smoker Tobacco Type: Amount or Packs/day: How Many Years: Alcohol Use: No Frequency: Quant:
--- NOTE | 2020-01-07 11:01 | HPC ---
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 HISTORY OF PRESENT ILLNESS: This is a very pleasant 29-year-old gentleman who returns to the pain clinic today for refill of his opioid medications. His last visit with us was 3 months ago. He states he has been doing quite well with his current regimen, rating his pain score OF 5/10. Most of his pain is located in his joints due to his hemophilia. His most painful joints are his left ankle and his elbows. He reports they are sharp, aching pain, worse with weather changes or over doing it or he finds that more problematic in the morning. He finds that rest and medication as well as heat and ice are beneficial. We discussed the patient's opioid-induced constipation. Dr. Portillo had trialled Movantik which was very expensive by his insurance company. So, the patient was given Symproic to try. The patient states that he takes this medicine about once a week and finds it very beneficial in controlling his opioid-induced constipation. He does not think he needs refills of this medication today. ALLERGIES: PENICILLIN and ROCEPHIN. MEDICATIONS: Hemlibra, oxycodone, hydrocodone 10/325, Koate-DVI weekly, Wellbutrin, omeprazole and Symproic. PQRS: 1. He has a history of osteoarthritis involving his elbows and ankles. He is not being treated for rheumatoid arthritis. 2. Height is 5 feet 11 inches, weight is 237, BMI is 33. 3. Vital signs 125/81, pulse is 79, respirations 16, oxygen sat is 98. 4. Pain score is 5/10. 5. Denies dizziness, does not need help walking or standing, has not fallen in the last 3 months. 6. The patient is not on any blood thinners or medicine for hypertension. 7. Opioid therapy is greater than 6 weeks; therefore, an opioid signed contract is on the chart. Risk assessment tool is low. Functional assessment is 36/70. 8. Recreational drug use, he denies. He is not a smoker and does not drink alcohol. [address] [address] PAIN MANAGEMENT CONSULTATION Name: ROBERT MOSCOSO Room #: REG JAMESON Sullivan#: [id number] Admission: 01/06/20 Attend Phys: Lennie Sanders Discharge: Date of : 88 Report #: [id number] According to the prescription monitoring system, the patient is filling appropriately for his medicines. His morphine mEq according to the CDC guidelines is 66. There is a recent drug screen on the chart that was appropriate for his medications. We will recheck this at his next appointment. PHYSICAL EXAMINATION: GENERAL: This is a well-developed, well-nourished, well-hydrated 29-year-old gentleman who appears his stated age. He is alert and orientated, answering all my questions appropriately. HEENT: Normocephalic, atraumatic. Extraocular eye muscles are intact. Mucous membranes are moist. He is wearing a mask. NECK: Without adenopathy or JVD. MUSCULOSKELETAL: He has discomfort in his left ankle as well as his bilateral elbows are tender. He is without significant scoliosis, kyphosis or lordosis and he walks with a normal gait. IMPRESSION: 1. 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 2. Depression. 3. Opioid-induced constipation. 4. Complex medical management under terms of written opioid agreement. We reviewed the fact that opiate medications are being used to provide analgesia adequate to support activities of daily living, not attempting to achieve a specific pain score on the 0-10 Visual Analog Scale. The current opiate medications are providing sufficient analgesia to allow the patient to participate in activities of daily living. The patient is not exhibiting any aberrant behavior suggestive of drug diversion. The patient is not having any adverse reactions to medications. The patient is not suffering from daytime somnolence or mental acuity changes. The patient is managing opiate-induced constipation with appropriate qnzf-tnl-kuctquq agents and dietary considerations. The patient was counseled on concern for caution with operating a motor vehicle while using opiate medications. PLAN: 1. We discussed treatment options with the patient today. The patient finds his hydrocodone and oxycodone very beneficial in controlling his pain. We will rewrite these medications for him by Dr. Errol Portillo for hydrocodone 10/325, #150 for today for an 8-week release as well as oxycodone 5 mg, #75 for the 3 months as well. 2. We discussed his opioid-induced constipation and he is using Symproic 0.[address] [address] PAIN MANAGEMENT CONSULTATION Name: ROBERT MOSCOSO Room #: RAI [place]#: [id number] Admission: 01/06/20 Attend Phys: Lennie Sanders Discharge: Date of : 88 Report #: [id number] once a week. We will not refill this medication today. 3. The patient is seen in collaboration with Dr. Errol Portillo. <ELECTRONICALLY SIGNED> By: Lennie Sanders 01/07/20 1101 1118 [id number] Lennie Sanders /reza
== END ==
LOC: PAIN 06:40
PROVIDERS: ATTEND Clinical Nurse Specialist Adult Health
DX: G89.4 Chronic pain syndrome (principal); F32.9 Major depressive disorder, single episode, unspecified; F11.20 Opioid dependence, uncomplicated; Z88.8 Allergy status to other drugs, medicaments and biological substances; Z79.899 Other long term (current) drug therapy

== ENCOUNTER → 2020-04-06 | Outpatient (CLI) | payer BC, OTHER ==
[~2020-04-06] VITALS: Ht 180.3 cm; Wt 106.6 kg
[~2020-04-06] MED LIST changes: +FLEXERIL PO
[2020-04-06 13:03] VITALS: BP 136/89
--- NOTE | 2020-04-06 13:06 | NUR ---
Pain Clinic Assessment: 1. History of Osteoarthritis: B/L ELBOWS B/L ANKLES History of Rheumatoid Arthritis: Not Applicable 2. Height: 5 ft. 11 in. 180.3 cm. Weight: 235.0 lb. oz. 106.596 kg. Patient's BMI: 32.8 3. Vital Signs: BP: 136/89 Pulse: 94 Resp: 14 Temp: 02 Sat: 96 ECG Mon: 4. Pain Intensity: 7 5. Fall Risk: Dizziness: N Needs help standing or walking: N Fallen in the last 3 months: N Fall risk comments: 6. Patient on Blood Thinner: None 7. History of Hypertension: N 8. Opioid Therapy greater than 6 weeks: Y Opiate Contract Signed: 05/10/16 9. Risk Assessment Tool Provided: LOW RISK 07/17 10. Functional Assessment Tool: 11. Recreational Drug Use: Never Drug Type: Tobacco Use: Never Smoker Tobacco Type: Chewing Tobacco Amount or Packs/day: How Many Years: Alcohol Use: No Frequency: Quant:
--- NOTE | 2020-04-07 09:42 | HPC ---
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 HISTORY OF PRESENT ILLNESS: This is a 29-year-old gentleman who returns to the pain clinic today for refill of his medications. Today, he is reporting a slight increase in pain, rating at a 7/10. He reports that he "tweaked his back last week." He is unsure what he did to cause an increase in his lower back as well as his neck. At times, he reports that it has been radiating pain, lasting a few seconds down his left arm into his fingers. He states that he has been using heat, ice to try and decrease this pain in his muscles. He does feel that it is slowly improving over the past few days. The patient does continue to complain of multiple joint pain, especially in his ankle and elbows. Feels the weather changes and overuse of his joints do increase his pain. Feels that the medication has been very beneficial. He is experiencing less constipation issues and has only been taking thus some pork on a very as needed basis. Today, he was like refills of his medicines. ALLERGIES: ROCEPHIN, PENICILLIN ALLERGIES. CURRENT MEDICATIONS: Hydrocodone 10/325, oxycodone 5 mg p.r.n., Hemlibra, Wellbutrin, Koate-DVI, Prilosec, Benadryl. PQRS: He has a history of osteoarthritis involving his ankles and elbows. He denies rheumatoid arthritis. Height is 5 feet 11 inches, weight is 235, BMI is 32. Vital signs; 138/89, pulse is 94, respirations 14, oxygen sat is 96. Pain score 7/10. Fall risk. Denies dizziness, does not need help walking or standing, has not fallen in the last 3 months. The patient is not on any blood thinners or medicine for hypertension. His opioid therapy is greater than 6 weeks; therefore, an opioid signed contract is on the chart. Risk assessment tool is low. Functional assessment is 36/70. Recreational drug use, he denies. He is not a smoker, but does chew tobacco and does not drink alcohol. According to the prescription monitoring system, the patient is filling appropriately for his medications due to fill those today. His morphine mEq according to the CDC guidelines is 66. We will check a random drug screen on him today. [address] [address] PAIN MANAGEMENT CONSULTATION Name: ROBERT MOSCOSO Room #: REG CL Nate#: [id number] Admission: 04/06/20 Attend Phys: Lennie Sanders Discharge: Date of : 88 Report #: [id number] PHYSICAL EXAMINATION: GENERAL: This is a well-developed, well-nourished, well-hydrated 29-year-old gentleman who appears his stated age, placing his current pain score at 7/10. He is a good historian. HEENT: Normocephalic, atraumatic. Extraocular eye muscles are intact. He is wearing a mask. NECK: Without adenopathy or JVD, but does have slight tightness in his trapezius muscles. MUSCULOSKELETAL: He has tenderness in his left ankle as well as his bilateral elbows. He is without significant scoliosis, kyphosis or lordosis. He has a normal gait. He has tenderness in his lumbar region and pain that is radiating down his right arm from his cervical spine. IMPRESSION: 1. 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 2. Myofascial pain. 3. Depression. 4. Opioid-induced constipation. 5. Complex medical management under terms of written opioid agreement. We reviewed the fact that opiate medications are being used to provide analgesia adequate to support activities of daily living, not attempting to achieve a specific pain score on the 0-10 Visual Analog Scale. The current opiate medications are providing sufficient analgesia to allow the patient to participate in activities of daily living. The patient is not exhibiting any aberrant behavior suggestive of drug diversion. The patient is not having any adverse reactions to medications. The patient is not suffering from daytime somnolence or mental acuity changes. The patient is managing opiate-induced constipation with appropriate lruk-bcl-bvbfcgj agents and dietary considerations. The patient was counseled on concern for caution with operating a motor vehicle while using opiate medications. PLAN: 1. We discussed treatment options with the patient today, finds that his medications are beneficial in relieving and managing most of his pain with limited side effects. He is only taking Symproic on a very as needed basis for his opioid-induced constipation. Today, we will have Dr. Portillo send his hydrocodone 10/325, #150 and his oxycodone 5 mg, #75 for a total of 3 months to his pharmacy. 2. The patient is experiencing muscle tightness in his neck and lumbar regions. He has been using heat and ice. I encouraged him to use hot shower and stretching as well. We will provide him with a small sample of Flexeril 10 mg tablets, #30 to see if this aids in reducing some of his spasms that he is filling to alleviate this problem. If it does continue, I encouraged him to [facility] [address] [place] [address] PAIN MANAGEMENT CONSULTATION Name: ROBERT MOSCOSO Room #: REG JAMESON Sullivan#: [id number] Admission: 04/06/20 Attend Phys: Lennie Sanders Discharge: Date of : 88 Report #: [id number] seek his primary care doctor and obtain some x-rays of his cervical spine since he is having some radicular pain into his arm periodically. 3. We will collect a random drug screen on this patient today. The patient is seen today in collaboration with Dr. Portillo. <ELECTRONICALLY SIGNED> By: Lennie Sanders 04/07/20 0942 [id number] Lennie Sanders /nt
== END ==
LOC: PAIN 06:46
PROVIDERS: ATTEND Clinical Nurse Specialist Adult Health
DX: G89.29 Other chronic pain (principal); F32.9 Major depressive disorder, single episode, unspecified; F11.20 Opioid dependence, uncomplicated; M79.10 Myalgia, unspecified site; Z88.8 Allergy status to other drugs, medicaments and biological substances; Z79.899 Other long term (current) drug therapy

== ENCOUNTER → 2020-07-06 | Outpatient (CLI) | payer BC, OTHER ==
[~2020-07-06] VITALS: Ht 180.3 cm; Wt 102.9 kg
[2020-07-06 08:55] VITALS: BP 126/89
--- NOTE | 2020-07-06 09:04 | NUR ---
Pain Clinic Assessment: 1. History of Osteoarthritis: B/L ELBOWS B/L ANKLES History of Rheumatoid Arthritis: Not Applicable 2. Height: 5 ft. 11 in. 180.3 cm. Weight: 226.8 lb. oz. 102.876 kg. Patient's BMI: 31.6 3. Vital Signs: BP: 126/89 Pulse: 96 Resp: 14 Temp: 02 Sat: 98 ECG Mon: 4. Pain Intensity: 5 5. Fall Risk: Dizziness: N Needs help standing or walking: N Fallen in the last 3 months: N Fall risk comments: 6. Patient on Blood Thinner: None 7. History of Hypertension: N 8. Opioid Therapy greater than 6 weeks: Y Opiate Contract Signed: 05/10/16 9. Risk Assessment Tool Provided: LOW RISK 1 10. Functional Assessment Tool: 11. Recreational Drug Use: Never Drug Type: Tobacco Use: Never Smoker Tobacco Type: Amount or Packs/day: How Many Years: Alcohol Use: No Frequency: Quant:
--- NOTE | 2020-07-06 15:55 | HPC ---
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 HISTORY OF PRESENT ILLNESS: This is a pleasant 29-year-old gentleman who returns to the pain clinic today for refill of his medications. Today, he is reporting a pain score at 5/10. He stated that is with medications earlier today. His pain was increased at 7-8 before he took his hydrocodone and oxycodone. He believes that this medication regimen has been beneficial in helping relieve his joint pain that he is experiencing worse in his elbows and ankles and low back. The patient does report he strained his back a few days ago, has been having muscle spasms in the lumbar region, has been utilizing heat and ice. He has not used massage because it is very tender to the touch. The patient reports that his pain is worse with overuse as well as weather changes, but believes overall he is doing significantly well on his current regimen with limited side effects. The patient reports he has not worked since August for the [employer] though he continues to be paid, he reports he has been busy fishing and going to start car racing in [place]. 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 ALLERGIES: ROCEPHIN AND PENICILLIN. CURRENT LIST OF MEDICATIONS: Oxycodone 5 mg p.r.n., hydrocodone 10/325 p.r.n. Hemlibra, Koate-DVI intravenously, Wellbutrin, and Benadryl. PQRS: 1. He has a history of osteoarthritis involving multiple joints. Denies any rheumatoid arthritis. 2. Height is 5 feet 11 inches, weight is 226, BMI is 31. 3. Vital signs 126/89, pulse is 96, respirations 14, oxygen sat is 98. 4. Pain score is 5/10. 5. Denies dizziness, does not need help walking or standing, has not fallen in the last 3 months. The patient is not on any blood thinners or medicine for hypertension. 6. Opioid therapy is greater than 6 weeks; therefore, an opioid signed contract is on the chart. Risk assessment is low. Functional assessment is 36/70. 7. Recreational drug use, he denies. He does chew tobacco and does not drink [address] [address] PAIN MANAGEMENT CONSULTATION Name: ROBERT MOSCOSO Room #: REG CLI Leonor#: [id number] Admission: 07/06/20 Attend Phys: Lennie Sanders Discharge: Date of : 88 Report #: [id number] alcohol. According to the prescription monitoring system, he is filling appropriately. There is a recent drug screen on the chart that is appropriate for his medications. PHYSICAL EXAMINATION: GENERAL: This is alert and orientated, slightly depressed 29-year-old gentleman who returns today, rating his pain score at 5/10. He is a good historian. HEENT: Normocephalic, atraumatic. Extraocular eye muscles are intact. He is wearing a mask. NECK: Without adenopathy or JVD. MUSCULOSKELETAL: Tenderness in his lumbosacral region, greater on the right than the left with increased tenderness. He is without significant kyphosis, scoliosis or lordosis. He has tenderness in his left ankle as well as his bilateral elbows are tender today. IMPRESSION: 1. Chronic pain secondary to hemarthrosis involving his elbows, knees and ankles. 2. Myofascial pain. 3. Depression. 4. Opioid-induced constipation. 5. Complex medical management utilizing scheduled medications. We reviewed the fact that opiate medications are being used to provide analgesia adequate to support activities of daily living, not attempting to achieve a specific pain score on the 0-10 Visual Analog Scale. The current opiate medications are providing sufficient analgesia to allow the patient to participate in activities of daily living. The patient is not exhibiting any aberrant behavior suggestive of drug diversion. The patient is not having any adverse reactions to medications. The patient is not suffering from daytime somnolence or mental acuity changes. The patient is managing opiate-induced constipation with appropriate eoww-njy-hpemygp agents and dietary considerations. The patient was counseled on concern for caution with operating a motor vehicle while using opiate medications. PLAN: 1. We discussed treatment options with the patient today. Overall, the patient feels the medications are very beneficial with very minimal side effects. He does occasionally take Movantik if need be for opioid-induced constipation, but not on a daily basis. He would like refills sent of his hydrocodone 10/325, #150 sent for today and 4-week supply as well as oxycodone 5 mg, #75 for 2 months. 2. We did discuss myofascial pain that is increased in his lower back due to some injury that he is unsure of the origin utilizing heat and ice. I [facility] [address] [place] [address] PAIN MANAGEMENT CONSULTATION Name: ROBERT MOSCOSO Room #: REG [facility].R.#: [id number] Admission: 07/06/20 Attend Phys: Lennie Sanders Discharge: Date of : 88 Report #: [id number] encouraged massage, though the patient reports it is very tender currently, he does have Flexeril at home that he may take as needed as well. 3. The patient will no longer be covered under [employer] and has purchased a plan through the exchange that [place] is not covered. We did discuss other options going to [facility] or [facility] if they are proved on his plan or he may utilize [facility]. I have instructed him to contact our registration office prior to leaving to discuss that option. 4. The patient is seen in collaboration with Dr. Portillo. <ELECTRONICALLY SIGNED> By: Lennie Sanders 07/06/20 1555 0935 [id number] Lennie Sanders /reza
== END ==
LOC: PAIN 06:47
PROVIDERS: ATTEND Clinical Nurse Specialist Adult Health
DX: M25.08 Hemarthrosis, other specified site (principal); G89.29 Other chronic pain; M79.18 Myalgia, other site; Z79.891 Long term (current) use of opiate analgesic; Z79.899 Other long term (current) drug therapy

== ENCOUNTER → 2020-09-30 | Outpatient (CLI) | payer OTHER ==
[~2020-09-30] VITALS: Ht 180.3 cm; Wt 104.1 kg
[2020-09-30 13:52] VITALS: BP 118/74
--- NOTE | 2020-09-30 14:08 | NUR ---
Pain Clinic Assessment: 1. History of Osteoarthritis: B/L ELBOWS B/L ANKLES History of Rheumatoid Arthritis: Not Applicable 2. Height: 5 ft. 11 in. 180.3 cm. Weight: 229.6 lb. oz. 104.146 kg. Patient's BMI: 32.0 3. Vital Signs: BP: 118/74 Pulse: 85 Resp: 14 Temp: 02 Sat: 98 ECG Mon: 4. Pain Intensity: 3 5. Fall Risk: Dizziness: N Needs help standing or walking: N Fallen in the last 3 months: N Fall risk comments: 6. Patient on Blood Thinner: None 7. History of Hypertension: N 8. Opioid Therapy greater than 6 weeks: Y Opiate Contract Signed: 05/10/16 9. Risk Assessment Tool Provided: LOW RISK 1 10. Functional Assessment Tool: 11. Recreational Drug Use: Never Drug Type: Tobacco Use: Never Smoker Tobacco Type: Amount or Packs/day: How Many Years: Alcohol Use: No Frequency: Quant:
== END ==
LOC: PAIN 06:55
PROVIDERS: ATTEND Anesthesiology Pain Medicine
DX: M54.5 Low back pain (principal); M79.10 Myalgia, unspecified site; F32.9 Major depressive disorder, single episode, unspecified; F11.20 Opioid dependence, uncomplicated; Z79.899 Other long term (current) drug therapy; Z88.8 Allergy status to other drugs, medicaments and biological substances

== ENCOUNTER → 2020-12-28 | Outpatient (CLI) | payer OTHER ==
[~2020-12-28] VITALS: Ht 180.3 cm; Wt 104.5 kg
[2020-12-28 09:51] VITALS: BP 123/80
--- NOTE | 2020-12-28 09:55 | NUR ---
Pain Clinic Assessment: 1. History of Osteoarthritis: B/L ELBOWS B/L ANKLES History of Rheumatoid Arthritis: Not Applicable 2. Height: 5 ft. 11 in. 180.3 cm. Weight: 230.4 lb. oz. 104.509 kg. Patient's BMI: 32.1 3. Vital Signs: BP: 123/80 Pulse: 87 Resp: 16 Temp: 02 Sat: 96 ECG Mon: 4. Pain Intensity: 5 5. Fall Risk: Dizziness: N Needs help standing or walking: N Fallen in the last 3 months: N Fall risk comments: 6. Patient on Blood Thinner: None 7. History of Hypertension: N 8. Opioid Therapy greater than 6 weeks: Y Opiate Contract Signed: 05/10/16 9. Risk Assessment Tool Provided: LOW RISK 1 10. Functional Assessment Tool: 11. Recreational Drug Use: Never Drug Type: Tobacco Use: Never Smoker Tobacco Type: Amount or Packs/day: How Many Years: Alcohol Use: No Frequency: Quant:
--- NOTE | 2020-12-29 07:28 | HPC ---
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 HISTORY OF PRESENT ILLNESS: This is a 30-year-old gentleman who returns to the pain clinic today for renewal of his medications. He suffers from hemophilia and continues to have pain in multiple joints, especially his ankles and elbows. He also continues to have occasionally low back pain. Today, he describes his pain as a sharp, throbbing, dull sensation that is worse with weather changes or over utilizing his joints. He reports he was in a disc golf tournament last weekend, but did aggravate his pain the following day, though that has resolved and back to his normal 5/10 pain. He believes the medication as well as cold ice and rest are beneficial for him. He denies daytime somnolence issues as a result of his medications. 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 He reports having his COVID vaccinations. ALLERGIES: ROCEPHIN, PENICILLINS. MEDICATION LIST: Oxycodone 5 mg p.r.n., hydrocodone 10/325 p.r.n., Hemlibra, antihemophilic factor, bupropion and Benadryl. PQRS: 1. He has osteoarthritic changes in his elbows and ankles. Denies any rheumatoid arthritis. height is 5 feet 11 inches, weight is 230, BMI is 32. 2. Vital signs: Blood pressure 123/80, pulse is 87, respirations 16, oxygen sat is 96%. Pain score is 5/10. Fall risk, denies dizziness, does not need help walking or standing, has not fallen in the last 3 months. 3. The patient is not on any blood thinners or medications for hypertension. His opioid therapy is greater than 6 weeks; therefore, an opioid signed contract is on the chart. 4. Risk assessment is low. Functional assessment is 36/70. 5. Recreational drug use, he denies. He is not a smoker and does not drink alcohol. [address] [address] PAIN MANAGEMENT CONSULTATION Name: BLANKAROBERT DIMITRIS Room #: REG CLBo Sullivan#: [id number] Admission: 12/28/20 Attend Phys: Lennie Sanders Discharge: Date of : 88 Report #: [id number] According to the prescription monitoring system, the patient is filling appropriately in a timely fashion. He is due to fill his medications this week. His morphine mEq according to the CDC guidelines is 75 morphine mEq. PHYSICAL EXAMINATION: GENERAL: This is a well-developed, well-hydrated, well-nourished, slightly obese 30-year-old gentleman who appears his stated age. HEENT: Normocephalic, atraumatic. Extraocular eye muscles are intact. He is wearing facial covering. NECK: Without adenopathy or JVD. MUSCULOSKELETAL: The patient is without significant scoliosis, kyphosis, or lordosis. He does have some tenderness in his elbows bilaterally as well as his ankles bilaterally and tenderness in the lumbosacral region of his back. His upper and lower extremity strength judged to be symmetrical at 5/5. IMPRESSION: 1. Chronic pain secondary to hemarthrosis revolving elbows, knees and ankles. It is a result of his hemophilia. 2. Myofascial pain. 3. Depression. 4. Opioid-induced constipation. 5. Complex medical issues and management utilizing scheduled opioid medications. PLAN: 1. We discussed treatment options with the patient today. Overall, the patient feels that his current medication of hydrocodone 10/325 and oxycodone 5 mg tablets is beneficial in controlling his pain. He has no aberrant fills or early request, filling them timely. We will continue this medication for 3 months of hydrocodone 10/325, #150 and oxycodone 5 mg, #75. At his next visit, we will collect a random drug screen on this patient. 2. I encouraged the patient to be as active as he is able that will overall help benefit some of his pain. Time spent in patient with consultation, reviewing pertinent imaging, reviewing recent studies and clinical notes and consultation reports, physical examination and correlation of findings to determine pain generators and possible treatments, 14 minutes. Time spent preparing, reviewing prescription monitoring system reports, reviewing previous records and proposed treatment options and reviewing current records, 5 minutes. Time spent preparing and sending electronic prescriptions with collaborating physician, Dr. Errol Portillo and documentation of visit and plan of [address] [address] PAIN MANAGEMENT CONSULTATION Name: ROBERT MOSCOSO Room #: REG CLI Shavon.#: [id number] Admission: 12/28/20 Attend Phys: Lennie Sanders Discharge: Date of : 88 Report #: [id number] treatment, 5 minutes. Total time spent 24 minutes. NOHEMY Olguin/MICAH <ELECTRONICALLY SIGNED> By: Lennie Sanders 12/29/20 0728 1213 2030 Lennie Sanders /nt
== END ==
LOC: PAIN 07:00
PROVIDERS: ATTEND Clinical Nurse Specialist Adult Health
DX: M79.10 Myalgia, unspecified site (principal); G89.29 Other chronic pain; F32.9 Major depressive disorder, single episode, unspecified; Z79.891 Long term (current) use of opiate analgesic; Z79.899 Other long term (current) drug therapy

== ENCOUNTER → 2021-03-29 | Outpatient (CLI) | payer OTHER ==
[~2021-03-29] VITALS: Ht 180.3 cm; Wt 106.6 kg
[~2021-03-29] MED LIST changes: +XTAMPZA ER9 MG PO
[2021-03-29 08:21] VITALS: BP 124/89
--- NOTE | 2021-03-29 08:26 | NUR ---
Pain Clinic Assessment: 1. History of Osteoarthritis: B/L ELBOWS B/L ANKLES History of Rheumatoid Arthritis: Not Applicable 2. Height: 5 ft. 11 in. 180.3 cm. Weight: 235.0 lb. oz. 106.596 kg. Patient's BMI: 32.8 3. Vital Signs: BP: 124/89 Pulse: 85 Resp: 16 Temp: 02 Sat: 99 ECG Mon: 4. Pain Intensity: 5 5. Fall Risk: Dizziness: N Needs help standing or walking: N Fallen in the last 3 months: N Fall risk comments: 6. Patient on Blood Thinner: None 7. History of Hypertension: N 8. Opioid Therapy greater than 6 weeks: Y Opiate Contract Signed: 05/10/16 9. Risk Assessment Tool Provided: LOW RISK 1 10. Functional Assessment Tool: 11. Recreational Drug Use: Never Drug Type: Tobacco Use: Never Smoker Tobacco Type: Amount or Packs/day: How Many Years: Alcohol Use: No Frequency: Quant:
== END ==
LOC: PAIN 06:51
PROVIDERS: ATTEND Clinical Nurse Specialist Adult Health
DX: G89.29 Other chronic pain (principal); F32.9 Major depressive disorder, single episode, unspecified; Z79.891 Long term (current) use of opiate analgesic; Z79.899 Other long term (current) drug therapy; Z88.8 Allergy status to other drugs, medicaments and biological substances

== ENCOUNTER → 2021-06-28 | Outpatient (CLI) | payer OTHER ==
[~2021-06-28] VITALS: Ht 180.3 cm; Wt 108.0 kg
[~2021-06-28] MED LIST changes: +XTAMPZA ER13.5 MG PO; +ZOLOFT25 MG PO
[2021-06-28 09:45] VITALS: BP 128/78
--- NOTE | 2021-06-28 10:00 | NUR ---
Pain Clinic Assessment: 1. History of Osteoarthritis: B/L ELBOWS B/L ANKLES History of Rheumatoid Arthritis: Not Applicable 2. Height: 5 ft. 11 in. 180.3 cm. Weight: 238.0 lb. oz. 107.956 kg. Patient's BMI: 33.2 3. Vital Signs: BP: 128/78 Pulse: 88 Resp: 16 Temp: 02 Sat: 99 ECG Mon: 4. Pain Intensity: 3 5. Fall Risk: Dizziness: N Needs help standing or walking: N Fallen in the last 3 months: N Fall risk comments: 6. Patient on Blood Thinner: None 7. History of Hypertension: N 8. Opioid Therapy greater than 6 weeks: Y Opiate Contract Signed: 05/10/16 9. Risk Assessment Tool Provided: LOW RISK 1 10. Functional Assessment Tool: 11. Recreational Drug Use: Never Drug Type: Tobacco Use: Never Smoker Tobacco Type: Chewing Tobacco Amount or Packs/day: daily How Many Years: 12 Alcohol Use: No Frequency: Quant:
== END ==
LOC: PAIN 08:44
PROVIDERS: ATTEND Clinical Nurse Specialist Adult Health
DX: G89.29 Other chronic pain (principal); K59.03 Drug induced constipation; F34.89 Other specified persistent mood disorders; Z88.0 Allergy status to penicillin; Z88.8 Allergy status to other drugs, medicaments and biological substances; Z79.899 Other long term (current) drug therapy